=== PATIENT | female | born 1945 | race Caucasian/White ===

== ENCOUNTER → 2021-08-12 | Outpatient (CLI) | payer MEDICARE, OTHER ==
[~2021-08-12] MED LIST: ALBUTEROL2.5 MG/3 M NEB; DIAMOX 250 MG250 MG PO; IPRAT-ALBUT 0.5-3 ML INH; LASIX TAB 20 MG20 MG PO; LEVAQUIN750 MG PO; MEDROL DOSEPAK 24 MG PO; PERFOROMIS20 MCG/21 HHN; POTASSIUM CHLO10 MEQ PO; PULMICORT0.5 MG/21 INH; SIMVASTATIN40 MG PO; VENTOLIN HFA 66.7 GM NEB
[2021-08-12 13:16] LABS: HEMOGLOBIN 14.6 gm/dl (12.3-15.3); RED BLOOD COUNT 5.12 M/UL (4.00-5.10); WHITE BLOOD COUNT 4.7 K/UL (4.5-11.0)
[2021-08-13 07:10] LABS: CALCIUM, SERUM 9.2 mg/dL (8.7-10.3); CREATININE, SERUM 0.65 mg/dL (0.57-1.00)
== END ==
LOC: LAB 11:45
PROVIDERS: Internal Medicine Pulmonary Disease
DX: J96.92 Respiratory failure, unspecified with hypercapnia (principal); I27.20 Pulmonary hypertension, unspecified
CPT/HCPCS: 36415; 36600; 80048; 82803; 85025

== ENCOUNTER → 2021-10-25 | Outpatient (CLI) | payer MEDICARE, OTHER | LOC: MAMO 10-05 09:30 | DX: Z12.31 Encounter for screening mammogram for malignant neoplasm of breast (principal) | CPT/HCPCS: 77063; 77067 ==

== ENCOUNTER → 2022-01-23 | Outpatient (CLI) | payer MEDICARE, OTHER | LOC: MAMO 12:30 | DX: R92.2 Inconclusive mammogram (principal); R92.8 Other abnormal and inconclusive findings on diagnostic imaging of breast; R92.0 Mammographic microcalcification found on diagnostic imaging of breast | CPT/HCPCS: 76641; 77065; G0279 ==